=== PATIENT | female | born 1990 | race Caucasian/White ===

== ENCOUNTER 2018-09-18 09:41 | Emergency (ER) | payer OTHER ==
--- NOTE | 2018-09-18 09:46 | UC ---
Eye Complaint HPI - History of Current Complaint Stated Complaint: EYE IRRITATION Time Seen by Provider: 09/18/18 09:44 Hx Last Menstrual Period: IRREG (THINKS SHE HAD ONE BEGINNING SEPTEMBER) - Allergies/Home Medications Allergies/Adverse Reactions: Allergies Allergy/AdvReac Type Severity Reaction Status Date / Time No Known Allergies Allergy Verified 11/11/14 16:41 PMH/Surg Hx/FS Hx/Imm Hx - Surgical History Surgical History: Yes Surgery Procedure, Year, and Place: WISDOM TEETH EXTRACTION - Social History Alcohol Use: Weekly Alcohol Amount: 4 BEERS/WEEK Substance Use Type: None Smoking Status (MU): Current Some Day Smoker Type: Cigarettes Discharge - Discharge Plan Referrals: Karis Solano MD [Primary Care Provider] -
[2018-09-18 09:54] VITALS: BP 106/84
--- NOTE | 2018-09-18 09:55 | UC ---
Eye Complaint HPI - HPI Summary HPI Summary: Patient Chief Complaint: swelling, redness mild discomfort lower lid left eye. Pain quality: mild Course, aggravating, relieving: touch; warmth Current: 2/10 unless touched Location: outside border of left lower lid MD note: VSS: pulse noted at 122; no elevation of BP. Nurses Note: Has a recurring stye in her L eye, currently has one that has been ther for a week. - History of Current Complaint Stated Complaint: EYE IRRITATION Time Seen by Provider: 09/18/18 09:44 Hx Last Menstrual Period: IRREG (THINKS SHE HAD ONE BEGINNING SEPTEMBER) - Allergies/Home Medications Allergies/Adverse Reactions: Allergies Allergy/AdvReac Type Severity Reaction Status Date / Time No Known Allergies Allergy Verified 09/18/18 09:53 PMH/Surg Hx/FS Hx/Imm Hx - Additional Past Medical History Additional PMH: Patient notes that she has chronic intermittent styes on lower lids of both eyes in the same place. They come and go. Review of visit history: Noncontributory to present complaint Review of chronic conditions: Asthma as a child Medications and Allergies: noncontributory; no allergies. Family History: -CANCER -Denies hypertension, heart disease, stroke, diabetes. SOCIAL HISTORY: Employment: works at [employer] Family:no one sick in immediate home. Habits: non smoker Previously Healthy: Yes - Surgical History Surgical History: Yes Surgery Procedure, Year, and Place: WISDOM TEETH EXTRACTION - Social History Alcohol Use: Weekly Alcohol Amount: 4 BEERS/WEEK Substance Use Type: None Smoking Status (MU): Current Some Day Smoker Type: Cigarettes Review of Systems Constitutional: Negative Skin: Negative Eyes: Other - swelling, discomfort, lower lid, left eye. ENT: Negative Respiratory: Negative Cardiovascular: Negative Gastrointestinal: Negative Genitourinary: Negative Motor: Negative Neurovascular: Negative Musculoskeletal: Negative Neurological: Negative Psychological: Negative Is Patient Immunocompromised?: No All Other Systems Reviewed And Are Negative: Yes - Comments Additional Review of Systems Comments: A 12 point review of systems was completed and was significantly positive for: . The remainder of the review was negative except as stated above in the ROS or HPI. Physical Exam - Summary Physical Exam Summary: Appearance: The patient is well-appearing, is in no pain or distress, and is well-nourished. Eyes: Conjunctiva are clear. Pupils are equal and reactive to light and accommodation. Extra ocular muscle movement is intact. 1.0 cm swelling that appears as a small yee along the border of the lower lid of the left eye. Mild surrounding erythema. No evidence of speedy-orbital or orbital cellulitis. No extension of erythema. Eye exam is otherwise normal. ENT: The hearing is grossly normal, the pharynx is normal, and the TMs are normal. There is no muffled or hoarse voice. No stridor. Neck: The neck is supple and there is no lymphadenopathy. Respiratory: The chest is nontender to palpation and without crepitus. The lungs are clear, there are normal breath sounds, and there is no respiratory distress. No wheezes, rales or rhonchi. Cardiovascular: Heart sounds reveal a regular rate and rhythm. There are no clicks, rubs or murmurs. There are no carotid bruits or thrills. Circulation is grossly intact. Abdomen: The abdomen is soft and nontender. There is no organomegaly. Bowel sounds are present and within normal limits. No point tenderness at McBurneys point. Musculoskeletal: Strength is intact. The patient moves all extremities. x. Neurological: The patient is alert. Motor and sensory are examination grossly intact. Speech is normal. Psychological: The patient displays age appropriate behavior Skin: Negative for rashes. Triage Information Reviewed: Yes Eye Complaint Course/Dx - Course Course Of Treatment: MEDICATIONS REVIEWED: Medications have been included in the original chart and reviewed. Healthy 28-year-old female with a ring 3 week history of a stye under the left eye. No evidence of orbital or periorbital cellulitis. I referred her to Dr. Villasenor, whom she is seen in the past, if this does not resolve with localized antibiotic treatment. I put her on erythromycin eye ointment and Bactroban to skin area. Patient knows that this may have to be opened if it gets worse. - Differential Dx/Diagnosis Differential Diagnosis/HQI/PQRI: Periorbital Cellulitis, Orbital Cellulitis Provider Diagnoses: Stye, lower lid, left eye Discharge - Sign-Out/Discharge Documenting (check all that apply): Patient Departure All imaging exams completed and their final reports reviewed: No Studies - Discharge Plan Condition: Stable Disposition: HOME Prescriptions: Erythromycin OPTH OINT* [Erythromycin 0.5% OPTH OINT*] 1 applic LEFT EYE QID #1 ophth.oint MDD every 2 hours Mupirocin 2% OINT* [Bactroban 2 % Oint*] 1 applic TOPICAL BID #1 tube MDD 4 times a day Patient Education Materials: Stye (ED) Referrals: Karis Solano MD [Primary Care Provider] - Additional Instructions: WE DISCUSSED: PLEASE SEEK CARE AT THE EMERGENCY DEPARTMENT IF SYMPTOMS WORSEN OR IF NEW SYMPTOMS DEVELOP. FOLLOW UP WITH YOUR PRIMARY CARE PHYSICIAN IF CONDITION CONTINUES BEYOND 3 DAYS WITHOUT IMPROVEMENT. YOUR DIAGNOSIS IS: stye, left lower eyelid YOUR PRESCRIPTION RECOMMENDATION IS: erythromycin ointment inside the eye; bactroban to the skin under the eye OTHER INSTRUCTIONS: Any worsening of your condition, call or come in for follow up. See Dr. Villasenor in two days if condition is not improving. Bactroban can be used in the future under your eye if you think your are developing a stye. - Billing Disposition and Condition Condition: STABLE Disposition: Home
== END 2018-09-18 10:11 | disposition home or self-care (01) ==
LOC: UCEAST 09:41
DX: H00.015 Hordeolum externum left lower eyelid (principal); F17.200 Nicotine dependence, unspecified, uncomplicated
CPT/HCPCS: 99212; G0463